=== PATIENT | male | born 1945 | race Caucasian/White ===

== ENCOUNTER 2020-01-31 06:19 | Inpatient (IN) ==
[2020-01-28 11:41] LABS: Basophils # 0.1 10*3/uL (0.0-0.2); Eosinophils # 0.2 10*3/uL (0.0-0.87); Eosinophils % 1.8 % (0.00-10.9); Hematocrit 52.3 VOL% (42.0-52.0); Immature Granulocytes % 1.8 %; Immature Granulocytes Absolute 0.21 #; Lymphocytes # 3.4 10*3/uL (1.4-4.0); Lymphocytes % 29.9 % (21.2-54.2); Mean Corpuscular HGB Conc 32.5 GM/DL (32-36); Mean Corpuscular Volume 94.9 FL (87-102); Mean Platelet Volume 11.6 FL (9.6-12.0); Monocytes % 11.2 % (1.7-12.7); Neutrophils % 54.3 % (38.7-73.9); Platelet Count 250 T/CUMM (130-400); Red Blood Count 5.51 MC/CUMM (3.8-5.5); Red Cell Distribution Width 17.1 % (9.3-17.3); White Blood Count 11.5 T/CUMM (4-12)
[2020-01-28 11:53] LABS: INR 0.9; Partial Thromboplastin Time 28.9 SECS (23.9-33.8)
[2020-01-28 12:07] LABS: Calcium 9.7 MG/DL (8.5-10.1); Osmolality,Calculated 277.7 MOS/KG (273-304)
[2020-01-31] MEDS ORDERED: cefOXitin 1,000 MG in SYRINGE 1 EACH IV ONE (06:30)
[2020-01-31] MEDS ORDERED: ACETAMINOPHEN 500 MG TABLET PO ONE (07:06)
[2020-01-31] MEDS ORDERED: FAMOTIDINE 20 MG TABLET PO ONE (07:06)
[2020-01-31] MEDS ORDERED: SCOPOLAMINE 1.5 MG PATCH TRANSDERM ONE (07:23)
[2020-01-31 07:28] LABS: Calcium 8.9 MG/DL (8.5-10.1); Osmolality,Calculated 272.8 MOS/KG (273-304)
[2020-01-31] MEDS ORDERED: LACTATED RINGERS 1,000 ML IV SCH (07:30)
[2020-01-31] MEDS ORDERED: ROPIVACAINE 0.5% 30 ML VIAL ONE (07:39)
[2020-01-31] MEDS ORDERED: LIDOCAINE 1% 5 ML VIAL ONE (07:39)
[2020-01-31] MEDS ORDERED: DEXAMETHASONE 4 MG/1 ML VIAL ONE ×2 (07:40→13:21)
[2020-01-31] MEDS: LACTATED RINGERS 1,000 ML IV SCH ×3 (07:44→20:55)
[2020-01-31] MEDS ORDERED: INDOCYANINE GREEN 25 MG VIAL IV ONE (11:22)
[2020-01-31] MEDS ORDERED: SUGAMMADEX 200 MG/2 ML VIAL IV ONE (12:30)
[2020-01-31] MEDS ORDERED: TISSUE ADHESIVE 1 EACH APPLICATOR TOP ONE (12:35)
[2020-01-31] MEDS ORDERED: HYDROmorphone 2 MG/1 ML VIAL ONE (13:13)
[2020-01-31] MEDS ORDERED: ONDANSETRON 4 MG/2 ML VIAL ONE ×2 (13:13→13:21)
[2020-01-31] MEDS ORDERED: ALUMINUM/MAGNES/SIMETH MAX STR 30 ML UDCUP PO PRN (13:18)
[2020-01-31] MEDS ORDERED: IPRATROPIUM 0.06% NASAL SPRAY 15 ML BOTTLE BOTH NARES PRN (13:18)
[2020-01-31] MEDS ORDERED: NITROGLYCERIN SL 0.4 MG TABLET SL PRN (13:18)
[2020-01-31] MEDS ORDERED: cloNIDine 0.1 MG TABLET PO PRN (13:18)
[2020-01-31] MEDS ORDERED: GLUCAGON 1 MG VIAL IM PRN (13:19)
[2020-01-31] MEDS ORDERED: DEXTROSE 50% 25 GM/50 ML VIAL IV PRN (13:19)
[2020-01-31] MEDS ORDERED: ALBUTEROL/IPRATROPIUM 3 ML NEB RESP TX PRN (13:19)
[2020-01-31] MEDS ORDERED: propofoL 200 MG/20 ML VIAL IV ONE (13:21)
[2020-01-31] MEDS ORDERED: METOCLOPRAMIDE 10 MG/2 ML VIAL ONE (13:21)
[2020-01-31] MEDS ORDERED: LIDOCAINE 2% 5 ML VIAL ONE (13:21)
[2020-01-31] MEDS ORDERED: SEVOFLURANE 1 UNIT/15 MINUTE INH ONE (13:21)
[2020-01-31] MEDS ORDERED: fentaNYL 100 MCG/2 ML VIAL ONE (13:21)
[2020-01-31] MEDS ORDERED: MIDAZOLAM 2 MG/2 ML VIAL ONE (13:21)
[2020-01-31] MEDS ORDERED: ONDANSETRON 4 MG/2 ML VIAL IV PRN (13:22)
[2020-01-31] MEDS ORDERED: LACTATED RINGERS 1,000 ML IV ONE (13:22)
[2020-01-31] MEDS ORDERED: SUCCINYLCHOLINE 200 MG/10 ML VIAL ONE (13:22)
[2020-01-31] MEDS ORDERED: ROCURONIUM 100 MG/10 ML VIAL IV ONE (13:22)
[2020-01-31] MEDS ORDERED: HYDROmorphone 2 MG/1 ML VIAL IV PRN (13:22)
[2020-01-31] MEDS: ONDANSETRON 4 MG/2 ML VIAL IV PRN (15:03)
[2020-01-31] MEDS: KETOROLAC 15 MG/1 ML VIAL IV SCH ×2 (15:03→20:49)
[2020-01-31] MEDS: DICLOFENAC 1% GEL 100 GM TUBE TOP SCH (15:06)
[2020-01-31] MEDS: INSULIN LISPRO 100 UNIT/ML SUBCUT SCH (16:10)
[2020-01-31] MEDS: carvediloL 6.25 MG TABLET PO SCH (20:49)
[2020-02-01] MEDS: OLOPATADINE 0.1% OPH SOLN 5 ML BOTTLE BOTH EYES SCH ×3 (00:06→21:25)
[2020-02-01] MEDS: DICLOFENAC 1% GEL 100 GM TUBE TOP SCH ×4 (00:08→21:25)
[2020-02-01] MEDS ORDERED: LACTATED RINGERS 1,000 ML IV ONE (00:45)
[2020-02-01] MEDS: LACTATED RINGERS 1,000 ML IV SCH (02:57)
[2020-02-01] MEDS: KETOROLAC 15 MG/1 ML VIAL IV SCH ×4 (02:58→21:24)
[2020-02-01 05:48] LABS: Basophils % 0.1 % (0.0-0.8); Hematocrit 39.1 VOL% (42.0-52.0); Immature Granulocytes % 0.6 %; Immature Granulocytes Absolute 0.09 #; Lymphocytes # 1.9 10*3/uL (1.4-4.0); Lymphocytes % 13.5 % (21.2-54.2); Mean Platelet Volume 11.8 FL (9.6-12.0); Monocytes % 7.2 % (1.7-12.7); Neutrophils % 78.6 % (38.7-73.9); Platelet Count 199 T/CUMM (130-400); Red Blood Count 4.16 MC/CUMM (3.8-5.5); Red Cell Distribution Width 16.3 % (9.3-17.3); White Blood Count 14.2 T/CUMM (4-12)
[2020-02-01 05:53] LABS: Hemoglobin 12.9 GM/DL (14.0-18.0)
[2020-02-01] MEDS: ENOXAPARIN 40 MG/0.4 ML SYRINGE SUBCUT SCH (06:15)
[2020-02-01 06:22] LABS: Osmolality,Calculated 283.5 MOS/KG (273-304)
[2020-02-01] MEDS: ONDANSETRON 4 MG/2 ML VIAL IV PRN (06:31)
[2020-02-01] MEDS: carvediloL 6.25 MG TABLET PO SCH ×2 (08:34→21:25)
[2020-02-01] MEDS: INSULIN LISPRO 100 UNIT/ML SUBCUT SCH ×3 (08:34→16:11)
[2020-02-01] MEDS: PANTOPRAZOLE 40 MG TABLET PO SCH (08:34)
[2020-02-01] MEDS: FLUTICASONE 50 MCG NASAL SPRAY 16 GM BOTTLE BOTH NARES SCH (08:56)
[2020-02-01] MEDS: DEXT 5% NACL 0.45% KCL 40 MEQ 40 MEQ/1,000 ML BAG IV SCH ×2 (11:51→19:16)
[2020-02-02] MEDS: ONDANSETRON 4 MG/2 ML VIAL IV PRN ×2 (01:45→08:36)
[2020-02-02] MEDS: HYDROmorphone 2 MG/1 ML VIAL IV PRN ×2 (01:48→19:34)
[2020-02-02] MEDS: DEXT 5% NACL 0.45% KCL 40 MEQ 40 MEQ/1,000 ML BAG IV SCH ×2 (03:16→15:51)
[2020-02-02] MEDS: KETOROLAC 15 MG/1 ML VIAL IV SCH ×4 (03:24→21:09)
[2020-02-02] MEDS: PROMETHAZINE 25 MG/1 ML VIAL IM PRN (03:56)
[2020-02-02 07:09] LABS: Basophils % 0.2 % (0.0-0.8); Hematocrit 36.9 VOL% (42.0-52.0); Hemoglobin 12.3 GM/DL (14.0-18.0); Immature Granulocytes % 0.5 %; Immature Granulocytes Absolute 0.05 #; Lymphocytes # 0.8 10*3/uL (1.4-4.0); Lymphocytes % 7.3 % (21.2-54.2); Mean Corpuscular HGB Conc 33.3 GM/DL (32-36); Mean Corpuscular Volume 94.6 FL (87-102); Mean Platelet Volume 11.8 FL (9.6-12.0); Platelet Count 168 T/CUMM (130-400); Red Cell Distribution Width 16.8 % (9.3-17.3); White Blood Count 10.2 T/CUMM (4-12)
[2020-02-02 07:20] LABS: Osmolality,Calculated 277.8 MOS/KG (273-304)
[2020-02-02] MEDS: LACTATED RINGERS 1,000 ML IV SCH ×2 (08:26→22:09)
[2020-02-02] MEDS: ENOXAPARIN 40 MG/0.4 ML SYRINGE SUBCUT SCH (09:33)
[2020-02-02] MEDS: INSULIN LISPRO 100 UNIT/ML SUBCUT SCH ×4 (09:33→21:07)
[2020-02-02] MEDS: carvediloL 6.25 MG TABLET PO SCH (10:22)
[2020-02-02] MEDS: FLUTICASONE 50 MCG NASAL SPRAY 16 GM BOTTLE BOTH NARES SCH (10:22)
[2020-02-02] MEDS: DICLOFENAC 1% GEL 100 GM TUBE TOP SCH ×2 (10:23→15:01)
[2020-02-02] MEDS: PANTOPRAZOLE 40 MG TABLET PO SCH (10:23)
[2020-02-02] MEDS: OLOPATADINE 0.1% OPH SOLN 5 ML BOTTLE BOTH EYES SCH (10:23)
[2020-02-02] MEDS ORDERED: LACTATED RINGERS 1,000 ML IV ONE ×4 (12:11→20:51)
[2020-02-02] MEDS ORDERED: MAGNESIUM SULF RIDER 4 GM in PREMIX 1 EACH IV PRN (12:11)
[2020-02-02] MEDS ORDERED: SODIUM CHLORIDE 0.9% 1,000 ML IV ONE ×2 (12:36→14:13)
[2020-02-02] MEDS ORDERED: DEXTROSE 50% 25 GM/50 ML VIAL IV PRN (12:36)
[2020-02-02] MEDS ORDERED: GLUCAGON 1 MG VIAL IM PRN (12:36)
[2020-02-02] MEDS ORDERED: NOREPINEPHRINE 8 MG in SODIUM CHLORIDE 0.9% 242 ML IV PRN ×2 (13:09→17:13)
[2020-02-02] MEDS ORDERED: NOREPINEPHRINE 4 MG/4 ML VIAL IV ONE (13:12)
[2020-02-02] MEDS ORDERED: SODIUM CHLORIDE 0.9% 1,000 ML IV SCH (13:30)
[2020-02-02] MEDS: MEROPENEM 500 MG in SODIUM CHLORIDE 0.9% 100 ML IV SCH ×2 (14:54→20:27)
[2020-02-02 14:58] LABS: Bilirubin,Urine Negative (Negative); Blood, Urine Moderate mg/dL (Negative); Glucose,Urine (UA) 50 mg/dL (Negative); Hyaline Casts,Urine 4 /LPF (0-3); Ketones,Urine Negative (Negative); Mucus,Urine Occasional /LPF (Occasional); Nitrite,Urine Negative (Negative); Protein,Urine Negative; RBC,Urine 1 /HPF (0-4); Urine Appearance CLEAR (Clear); Urine Color Yellow (Yellow); Urine Specific Gravity 1.012 (1.001-1.035); Urine Urobilinogen < 2.0 EU/DL (0.2-1.0); WBC,Urine <1 /HPF (0-6)
[2020-02-02] MEDS ORDERED: PHENYLEPHRINE DRIP 40 MG/250 ML PREMIX IV ONE (16:43)
[2020-02-02] MEDS ORDERED: MAGNESIUM SULF RIDER 2 GM in PREMIX 1 EACH IV ONE (16:44)
[2020-02-02] MEDS: MAGNESIUM SULF RIDER 2 GM in PREMIX 1 EACH IV PRN (16:45)
[2020-02-02 16:46] LABS: Hematocrit 34.4 VOL% (42.0-52.0); Hemoglobin 11.7 GM/DL (14.0-18.0); Platelet Count 218 T/CUMM (130-400)
[2020-02-02] MEDS: PHENYLEPHRINE DRIP 40 MG/250 ML PREMIX IV PRN (16:52)
[2020-02-02] MEDS: PANTOPRAZOLE 40 MG VIAL IV SCH (17:10)
[2020-02-02 17:24] LABS: INR 1.1; PT Patient Result 11.9 SECS (9.8-11.9); Partial Thromboplastin Time 31.8 SECS (23.9-33.8)
[2020-02-02] MEDS ORDERED: LIDOCAINE 1%/EPI INJ 20 ML VIAL ONE (17:28)
[2020-02-02] MEDS ORDERED: BUPIVACAINE MPF 0.25% 30 ML VIAL ONE (17:28)
[2020-02-02] MEDS ORDERED: PHENYLEPHRINE DRIP 20 MG/250 ML PREMIX IV ONE (17:30)
[2020-02-02] MEDS ORDERED: LIDOCAINE 2% 5 ML VIAL ONE (19:23)
[2020-02-02] MEDS ORDERED: fentaNYL 100 MCG/2 ML VIAL ONE (19:23)
[2020-02-02] MEDS ORDERED: SEVOFLURANE 1 UNIT/15 MINUTE INH ONE (19:23)
[2020-02-02] MEDS ORDERED: SUCCINYLCHOLINE 200 MG/10 ML VIAL ONE (19:24)
[2020-02-02] MEDS ORDERED: ROCURONIUM 100 MG/10 ML VIAL IV ONE (19:24)
[2020-02-02] MEDS ORDERED: PHENYLEPHRINE 1 MG/10 ML SYRINGE IV ONE (19:24)
[2020-02-02] MEDS ORDERED: MIDAZOLAM 2 MG/2 ML VIAL ONE (19:24)
[2020-02-02] MEDS ORDERED: VECURONIUM 10 MG VIAL IV ONE (19:24)
[2020-02-02] MEDS ORDERED: SODIUM CHLORIDE 0.9% 2,000 ML IV ONE (19:24)
[2020-02-02] MEDS ORDERED: ETOMIDATE 40 MG/20 ML VIAL IV ONE (19:24)
[2020-02-02 20:09] LABS: ABG Base Excess -8.7 MMOL/L (-2.5-2.5); ABG HCO3 17.5 MMOL/L (20-26); ABG Oxygen Saturation 95.9 % (95-100); ABG PH 7.271 (7.35-7.45); ABG TCO2 18.7 MMOL/L (23-27)
[2020-02-03] MEDS: LACTATED RINGERS 1,000 ML IV SCH ×7 (00:46→22:56)
[2020-02-03] MEDS: MEROPENEM 500 MG in SODIUM CHLORIDE 0.9% 100 ML IV SCH ×3 (00:50→12:40)
[2020-02-03] MEDS: DICLOFENAC 1% GEL 100 GM TUBE TOP SCH ×3 (01:12→17:17)
[2020-02-03] MEDS: PHENYLEPHRINE DRIP 40 MG/250 ML PREMIX IV PRN ×2 (01:39→07:14)
[2020-02-03] MEDS: KETOROLAC 15 MG/1 ML VIAL IV SCH ×2 (02:52→08:06)
[2020-02-03 03:54] LABS: ABG Base Excess -8.6 MMOL/L (-2.5-2.5); ABG HCO3 17.5 MMOL/L (20-26); ABG Oxygen Saturation 99.4 % (95-100); ABG PCO2 28.7 MM HG (35-48); ABG PH 7.349 (7.35-7.45); ABG TCO2 14.2 MMOL/L (23-27)
[2020-02-03 03:58] LABS: Basophils # 0.1 10*3/uL (0.0-0.2); Basophils % 0.5 % (0.0-0.8); Eosinophils # 0.1 10*3/uL (0.0-0.87); Eosinophils % 0.6 % (0.00-10.9); Hematocrit 36.5 VOL% (42.0-52.0); Hemoglobin 11.7 GM/DL (14.0-18.0); Immature Granulocytes % 0.3 %; Immature Granulocytes Absolute 0.04 #; Lymphocytes % 13.1 % (21.2-54.2); Mean Corpuscular HGB Conc 32.1 GM/DL (32-36); Mean Corpuscular Volume 98.1 FL (87-102); Mean Platelet Volume 11.4 FL (9.6-12.0); Monocytes % 10.2 % (1.7-12.7); NRBC # 0.03 10*3/uL; Neutrophils % 75.3 % (38.7-73.9); Platelet Count 241 T/CUMM (130-400); Red Blood Count 3.72 MC/CUMM (3.8-5.5); Red Cell Distribution Width 17.2 % (9.3-17.3); White Blood Count 15.5 T/CUMM (4-12)
[2020-02-03 04:11] LABS: Bilirubin,Total 0.6 MG/DL (0.2-1.0); Osmolality,Calculated 280.5 MOS/KG (273-304); Total Protein 4.9 G/DL (6.4-8.3)
[2020-02-03 04:58] LABS: Band Neutrophils 10 % (0-10); Lymphocytes 17 % (20-55); Metamyelocytes 2 %; Segmented Neutrophils 64 % (50-85); Total Cells Counted 100
[2020-02-03 05:13] LABS: Hypochromasia Slight
[2020-02-03 05:14] LABS: Microcytosis 1+; Platelet Estimate Normal
[2020-02-03] MEDS: OLOPATADINE 0.1% OPH SOLN 5 ML BOTTLE BOTH EYES SCH ×2 (05:40→11:33)
[2020-02-03] MEDS: ENOXAPARIN 40 MG/0.4 ML SYRINGE SUBCUT SCH (05:41)
[2020-02-03] MEDS: INSULIN LISPRO 100 UNIT/ML SUBCUT SCH ×4 (08:00→20:48)
[2020-02-03] MEDS: PANTOPRAZOLE 40 MG VIAL IV SCH (08:02)
[2020-02-03] MEDS: MIDAZOLAM 100 MG in SODIUM CHLORIDE 0.9% 80 ML IV PRN (11:00)
[2020-02-03] MEDS: FLUTICASONE 50 MCG NASAL SPRAY 16 GM BOTTLE BOTH NARES SCH (11:33)
[2020-02-03] MEDS: PHENYLEPHRINE INJ 160 MG in SODIUM CHLORIDE 0.9% 234 ML IV PRN (11:57)
[2020-02-03] MEDS: ASPIRIN CHEW 81 MG TABLET PO SCH (12:27)
[2020-02-03] MEDS ORDERED: ENOXAPARIN 100 MG/ML SYRINGE SUBCUT SCH (13:00)
[2020-02-03] MEDS: MAGNESIUM SULF RIDER 2 GM in PREMIX 1 EACH IV PRN ×2 (13:18→15:34)
[2020-02-03] MEDS: HYDROmorphone 2 MG/1 ML VIAL IV PRN ×2 (14:23→20:43)
[2020-02-03] MEDS ORDERED: diphenhydrAMINE 50 MG/1 ML VIAL IV PRN (17:08)
[2020-02-03] MEDS ORDERED: PANTOPRAZOLE 40 MG VIAL IV SCH (17:10)
[2020-02-03] MEDS: ENOXAPARIN 100 MG/ML SYRINGE SUBCUT SCH (18:10)
[2020-02-04] MEDS: MEROPENEM 500 MG in SODIUM CHLORIDE 0.9% 100 ML IV SCH (00:52)
[2020-02-04 04:38] LABS: ABG Base Excess -3.7 MMOL/L (-2.5-2.5); ABG HCO3 21.4 MMOL/L (20-26); ABG Oxygen Saturation 98.9 % (95-100); ABG PCO2 33.6 MM HG (35-48); ABG PH 7.393 (7.35-7.45); ABG TCO2 18.2 MMOL/L (23-27)
[2020-02-04] MEDS: LACTATED RINGERS 1,000 ML IV SCH ×5 (04:39→19:37)
[2020-02-04] MEDS: PHENYLEPHRINE INJ 160 MG in SODIUM CHLORIDE 0.9% 234 ML IV PRN (04:40)
[2020-02-04 04:46] LABS: Basophils # 0.1 10*3/uL (0.0-0.2); Basophils % 0.7 % (0.0-0.8); Eosinophils # 0.1 10*3/uL (0.0-0.87); Eosinophils % 0.6 % (0.00-10.9); Hematocrit 35.6 VOL% (42.0-52.0); Hemoglobin 11.5 GM/DL (14.0-18.0); Immature Granulocytes % 1.1 %; Immature Granulocytes Absolute 0.21 #; Lymphocytes # 1.5 10*3/uL (1.4-4.0); Mean Corpuscular HGB Conc 32.3 GM/DL (32-36); Mean Corpuscular Volume 96.5 FL (87-102); Mean Platelet Volume 11.4 FL (9.6-12.0); Monocytes % 6.9 % (1.7-12.7); NRBC # 0.03 10*3/uL; Neutrophils % 82.7 % (38.7-73.9); Platelet Count 179 T/CUMM (130-400); Red Blood Count 3.69 MC/CUMM (3.8-5.5); Red Cell Distribution Width 17.2 % (9.3-17.3); White Blood Count 19.1 T/CUMM (4-12)
[2020-02-04] MEDS: MIDAZOLAM 100 MG in SODIUM CHLORIDE 0.9% 80 ML IV PRN (05:01)
[2020-02-04 05:07] LABS: Band Neutrophils 6 % (0-10); Hypochromasia Slight; Lymphocytes 7 % (20-55); Metamyelocytes 1 %; Segmented Neutrophils 80 % (50-85); Total Cells Counted 100
[2020-02-04 05:08] LABS: Microcytosis 1+; Platelet Estimate Adequate
[2020-02-04 05:21] LABS: Calcium 6.9 MG/DL (8.5-10.1); Osmolality,Calculated 281.3 MOS/KG (273-304)
[2020-02-04 05:26] LABS: Albumin 1.6 G/DL (3.4-5.0); Bilirubin,Total 0.6 MG/DL (0.2-1.0); Calcium 7.2 MG/DL (8.5-10.1); Osmolality,Calculated 283.1 MOS/KG (273-304); Total Protein 4.6 G/DL (6.4-8.3)
[2020-02-04] MEDS: DICLOFENAC 1% GEL 100 GM TUBE TOP SCH ×4 (05:26→21:00)
[2020-02-04] MEDS: ACETAMINOPHEN 325 MG TABLET PO PRN (08:07)
[2020-02-04] MEDS: ASPIRIN CHEW 81 MG TABLET PO SCH (08:08)
[2020-02-04] MEDS: INSULIN LISPRO 100 UNIT/ML SUBCUT SCH ×4 (08:08→20:56)
[2020-02-04] MEDS: PANTOPRAZOLE 40 MG VIAL IV SCH (08:16)
[2020-02-04] MEDS: FLUTICASONE 50 MCG NASAL SPRAY 16 GM BOTTLE BOTH NARES SCH (10:59)
[2020-02-04] MEDS: LEVOFLOXACIN INJ 750 MG in PREMIX 1 EACH IV SCH (11:20)
[2020-02-04] MEDS: ENOXAPARIN 100 MG/ML SYRINGE SUBCUT SCH (18:22)
[2020-02-05] MEDS: INSULIN LISPRO 100 UNIT/ML SUBCUT SCH ×4 (01:05→19:00)
[2020-02-05] MEDS: LACTATED RINGERS 1,000 ML IV SCH ×3 (01:06→07:08)
[2020-02-05] MEDS: ONDANSETRON 4 MG/2 ML VIAL IV PRN ×4 (03:42→18:16)
[2020-02-05] MEDS: ACETAMINOPHEN 325 MG TABLET PO PRN (03:42)
[2020-02-05 04:16] LABS: ABG Base Excess -2.7 MMOL/L (-2.5-2.5); ABG HCO3 22.1 MMOL/L (20-26); ABG Oxygen Saturation 96.7 % (95-100); ABG PCO2 32.7 MM HG (35-48); ABG PH 7.417 (7.35-7.45); ABG TCO2 18.8 MMOL/L (23-27)
[2020-02-05 04:24] LABS: Basophils # 0.1 10*3/uL (0.0-0.2); Basophils % 0.4 % (0.0-0.8); Eosinophils # 0.2 10*3/uL (0.0-0.87); Eosinophils % 1.2 % (0.00-10.9); Hematocrit 35.7 VOL% (42.0-52.0); Hemoglobin 11.5 GM/DL (14.0-18.0); Immature Granulocytes % 1.7 %; Immature Granulocytes Absolute 0.28 #; Lymphocytes # 1.5 10*3/uL (1.4-4.0); Mean Corpuscular HGB Conc 32.2 GM/DL (32-36); Mean Corpuscular Volume 94.7 FL (87-102); Mean Platelet Volume 10.8 FL (9.6-12.0); Monocytes % 8.4 % (1.7-12.7); Neutrophils % 79.3 % (38.7-73.9); Platelet Count 150 T/CUMM (130-400); Red Blood Count 3.77 MC/CUMM (3.8-5.5); Red Cell Distribution Width 16.7 % (9.3-17.3); White Blood Count 16.2 T/CUMM (4-12)
[2020-02-05 04:44] LABS: Calcium 7.3 MG/DL (8.5-10.1); Osmolality,Calculated 279.4 MOS/KG (273-304)
[2020-02-05 04:51] LABS: Band Neutrophils 1 % (0-10); Eosinophils 1 % (0-10); Lymphocytes 6 % (20-55); Segmented Neutrophils 85 % (50-85); Total Cells Counted 100
[2020-02-05 04:52] LABS: Hypochromasia 1+; Microcytosis 1+; Platelet Estimate Adequate
[2020-02-05] MEDS: MAGNESIUM SULF RIDER 2 GM in PREMIX 1 EACH IV PRN (06:35)
[2020-02-05] MEDS: LEVOFLOXACIN INJ 750 MG in PREMIX 1 EACH IV SCH (10:27)
[2020-02-05] MEDS: ASPIRIN CHEW 81 MG TABLET PO SCH (10:28)
[2020-02-05] MEDS: DICLOFENAC 1% GEL 100 GM TUBE TOP SCH ×3 (10:29→21:01)
[2020-02-05] MEDS: ENOXAPARIN 100 MG/ML SYRINGE SUBCUT SCH ×2 (10:29→21:01)
[2020-02-05] MEDS: FLUTICASONE 50 MCG NASAL SPRAY 16 GM BOTTLE BOTH NARES SCH (10:30)
[2020-02-05] MEDS: PANTOPRAZOLE 40 MG VIAL IV SCH (10:31)
[2020-02-05] MEDS: POTASSIUM CHLORIDE RIDER 10 MEQ in PREMIX 1 EACH IV PRN ×3 (10:32→12:30)
[2020-02-05] MEDS ORDERED: HALOPERIDOL 5 MG/ML AMP IV PRN (11:12)
[2020-02-05] MEDS: PROMETHAZINE 25 MG/1 ML VIAL IM PRN (22:22)
[2020-02-06] MEDS: INSULIN LISPRO 100 UNIT/ML SUBCUT SCH ×5 (00:10→23:40)
[2020-02-06 04:52] LABS: Basophils % 0.3 % (0.0-0.8); Eosinophils # 0.3 10*3/uL (0.0-0.87); Eosinophils % 2.6 % (0.00-10.9); Hematocrit 38.9 VOL% (42.0-52.0); Hemoglobin 13.1 GM/DL (14.0-18.0); Immature Granulocytes % 6.9 %; Immature Granulocytes Absolute 0.76 #; Lymphocytes % 17.8 % (21.2-54.2); Mean Corpuscular HGB Conc 33.7 GM/DL (32-36); Mean Corpuscular Volume 92.4 FL (87-102); Mean Platelet Volume 12.1 FL (9.6-12.0); Monocytes % 11.6 % (1.7-12.7); Neutrophils % 60.8 % (38.7-73.9); Platelet Count 146 T/CUMM (130-400); Red Blood Count 4.21 MC/CUMM (3.8-5.5); Red Cell Distribution Width 16.7 % (9.3-17.3)
[2020-02-06 05:09] LABS: Calcium 7.4 MG/DL (8.5-10.1); Osmolality,Calculated 277.4 MOS/KG (273-304)
[2020-02-06 05:13] LABS: Band Neutrophils 1 % (0-10); Eosinophils 1 % (0-10); Hypochromasia 1+; Lymphocytes 11 % (20-55); Segmented Neutrophils 78 % (50-85); Total Cells Counted 100
[2020-02-06 05:14] LABS: Microcytosis 1+; Platelet Estimate Adequate
[2020-02-06] MEDS: POTASSIUM CHLORIDE RIDER 10 MEQ in PREMIX 1 EACH IV PRN (05:44)
[2020-02-06] MEDS: MAGNESIUM SULF RIDER 2 GM in PREMIX 1 EACH IV PRN (06:00)
[2020-02-06] MEDS: ONDANSETRON 4 MG/2 ML VIAL IV PRN ×2 (06:33→22:30)
[2020-02-06] MEDS: DICLOFENAC 1% GEL 100 GM TUBE TOP SCH ×3 (08:39→20:27)
[2020-02-06] MEDS: ASPIRIN CHEW 81 MG TABLET PO SCH (08:39)
[2020-02-06] MEDS: PANTOPRAZOLE 40 MG VIAL IV SCH (08:39)
[2020-02-06] MEDS: ENOXAPARIN 100 MG/ML SYRINGE SUBCUT SCH ×2 (08:39→20:27)
[2020-02-06] MEDS: FLUTICASONE 50 MCG NASAL SPRAY 16 GM BOTTLE BOTH NARES SCH (08:39)
[2020-02-06] MEDS: LEVOFLOXACIN INJ 750 MG in PREMIX 1 EACH IV SCH (09:31)
[2020-02-06] MEDS: PROMETHAZINE 25 MG/1 ML VIAL IM PRN (11:13)
[2020-02-06] MEDS: FAT EMULSION 20% 250 ML IV SCH (15:42)
[2020-02-06] MEDS ORDERED: [UNRECOGNIZED DRUG - OTHER] IV SCH (17:00)
[2020-02-06] MEDS ORDERED: MULTIVITAMIN IV SCH (17:00)
[2020-02-06] MEDS ORDERED: TRACE ELEMENTS IV SCH (17:00)
[2020-02-06] MEDS ORDERED: DEXTROSE 10% 1,000 ML IV PRN (17:00)
[2020-02-06] MEDS: HYDROmorphone 2 MG/1 ML VIAL IV PRN (23:40)
[2020-02-07 05:14] LABS: Basophils # 0.1 10*3/uL (0.0-0.2); Basophils % 1.3 % (0.0-0.8); Eosinophils # 0.4 10*3/uL (0.0-0.87); Eosinophils % 3.4 % (0.00-10.9); Hematocrit 37.7 VOL% (42.0-52.0); Hemoglobin 12.8 GM/DL (14.0-18.0); Immature Granulocytes % 11.9 %; Immature Granulocytes Absolute 1.26 #; Lymphocytes % 19.2 % (21.2-54.2); Mean Corpuscular Volume 91.5 FL (87-102); Mean Platelet Volume 11.7 FL (9.6-12.0); Monocytes % 14.4 % (1.7-12.7); Neutrophils % 49.8 % (38.7-73.9); Platelet Count 161 T/CUMM (130-400); Red Blood Count 4.12 MC/CUMM (3.8-5.5); Red Cell Distribution Width 16.6 % (9.3-17.3); White Blood Count 10.6 T/CUMM (4-12)
[2020-02-07 05:34] LABS: Calcium 7.5 MG/DL (8.5-10.1); Osmolality,Calculated 276.8 MOS/KG (273-304)
[2020-02-07] MEDS: INSULIN LISPRO 100 UNIT/ML SUBCUT SCH ×3 (05:50→18:38)
[2020-02-07 05:51] LABS: Eosinophils 6 % (0-10); Hypochromasia 1+; Lymphocytes 21 % (20-55); Metamyelocytes 1 %; Myelocytes 3 %; Segmented Neutrophils 57 % (50-85)
[2020-02-07 05:52] LABS: Platelet Estimate Normal; Total Cells Counted 100
[2020-02-07] MEDS: MAGNESIUM SULF RIDER 2 GM in PREMIX 1 EACH IV PRN (05:55)
[2020-02-07] MEDS: POTASSIUM CHLORIDE RIDER 10 MEQ in PREMIX 1 EACH IV PRN (05:55)
[2020-02-07] MEDS: ONDANSETRON 4 MG/2 ML VIAL IV PRN ×5 (06:08→20:55)
[2020-02-07] MEDS: PANTOPRAZOLE 40 MG VIAL IV SCH (09:14)
[2020-02-07] MEDS: ENOXAPARIN 100 MG/ML SYRINGE SUBCUT SCH ×2 (09:17→20:56)
[2020-02-07] MEDS: DICLOFENAC 1% GEL 100 GM TUBE TOP SCH ×3 (09:20→20:59)
[2020-02-07] MEDS: ASPIRIN CHEW 81 MG TABLET PO SCH (09:23)
[2020-02-07] MEDS: LEVOFLOXACIN INJ 750 MG in PREMIX 1 EACH IV SCH (09:35)
[2020-02-07] MEDS ORDERED: POTASSIUM CHLORIDE 20 MEQ/15 ML UDCUP PER TUBE SCH (10:00)
[2020-02-07] MEDS: FLUTICASONE 50 MCG NASAL SPRAY 16 GM BOTTLE BOTH NARES SCH (11:04)
[2020-02-07] MEDS: POTASSIUM CHLORIDE 20 MEQ TABLET PO SCH ×3 (11:34→18:39)
[2020-02-07] MEDS: PROMETHAZINE 25 MG/1 ML VIAL IM PRN (15:39)
[2020-02-07] MEDS: MULTIVITAMIN INJ 10 ML, TRACE ELEMENTS (5) 1 ML in AMINO ACIDS/DEXT/LYTES 5-15% 2,000 ML IV SCH (16:16)
[2020-02-07] MEDS: FAT EMULSION 20% 250 ML IV SCH (16:16)
[2020-02-07] MEDS: HYDROmorphone 2 MG/1 ML VIAL IV PRN ×2 (17:15→20:53)
[2020-02-07] MEDS: PROMETHAZINE INJ 12.5 MG in SODIUM CHLORIDE 0.9% 50 ML IV PRN (22:15)
[2020-02-07] MEDS: OLOPATADINE 0.1% OPH SOLN 5 ML BOTTLE BOTH EYES SCH (22:57)
[2020-02-08] MEDS: ONDANSETRON 4 MG/2 ML VIAL IV PRN ×5 (00:04→21:05)
[2020-02-08] MEDS: HYDROmorphone 2 MG/1 ML VIAL IV PRN ×3 (00:50→21:12)
[2020-02-08] MEDS: INSULIN LISPRO 100 UNIT/ML SUBCUT SCH ×4 (01:57→18:12)
[2020-02-08 04:31] LABS: Basophils # 0.1 10*3/uL (0.0-0.2); Basophils % 0.7 % (0.0-0.8); Eosinophils # 0.2 10*3/uL (0.0-0.87); Eosinophils % 1.1 % (0.00-10.9); Hemoglobin 12.7 GM/DL (14.0-18.0); Immature Granulocytes Absolute 2.37 #; Lymphocytes % 14.3 % (21.2-54.2); Mean Corpuscular HGB Conc 33.4 GM/DL (32-36); Mean Corpuscular Volume 92.2 FL (87-102); Mean Platelet Volume 11.9 FL (9.6-12.0); Monocytes % 15.1 % (1.7-12.7); NRBC # 0.03 10*3/uL; Neutrophils % 51.8 % (38.7-73.9); Platelet Count 172 T/CUMM (130-400); Red Blood Count 4.12 MC/CUMM (3.8-5.5); Red Cell Distribution Width 16.7 % (9.3-17.3)
[2020-02-08 04:48] LABS: Calcium 7.7 MG/DL (8.5-10.1); Osmolality,Calculated 278.1 MOS/KG (273-304)
[2020-02-08 05:02] LABS: Lymphocytes 22 % (20-55); Nucleated Red Blood Cells 1 (0-5); Platelet Estimate Normal; Segmented Neutrophils 66 % (50-85)
[2020-02-08 05:03] LABS: Total Cells Counted 100
[2020-02-08] MEDS: PROMETHAZINE INJ 12.5 MG in SODIUM CHLORIDE 0.9% 50 ML IV PRN ×2 (06:27→14:10)
[2020-02-08] MEDS: ASPIRIN CHEW 81 MG TABLET PO SCH (08:33)
[2020-02-08] MEDS: OLOPATADINE 0.1% OPH SOLN 5 ML BOTTLE BOTH EYES SCH ×2 (08:34→21:11)
[2020-02-08] MEDS: DICLOFENAC 1% GEL 100 GM TUBE TOP SCH ×3 (08:34→21:04)
[2020-02-08] MEDS: FLUTICASONE 50 MCG NASAL SPRAY 16 GM BOTTLE BOTH NARES SCH (08:34)
[2020-02-08] MEDS: ENOXAPARIN 100 MG/ML SYRINGE SUBCUT SCH ×2 (08:34→21:04)
[2020-02-08] MEDS: PANTOPRAZOLE 40 MG VIAL IV SCH (08:34)
[2020-02-08] MEDS: LEVOFLOXACIN INJ 750 MG in PREMIX 1 EACH IV SCH (11:16)
[2020-02-08] MEDS: FAT EMULSION 20% 250 ML IV SCH (15:28)
[2020-02-08] MEDS: INSULIN REGULAR IV SCH ×2 (15:29→16:16)
[2020-02-08] MEDS: MULTIVITAMIN IV SCH ×2 (15:29→16:16)
[2020-02-08] MEDS: TRACE ELEMENTS IV SCH ×2 (15:29→16:16)
[2020-02-08] MEDS: [UNRECOGNIZED DRUG - OTHER] IV SCH ×2 (15:29→16:16)
[2020-02-08] MEDS: MULTIVITAMIN INJ 10 ML, TRACE ELEMENTS (5) 1 ML in AMINO ACIDS/DEXT/LYTES 5-15% 2,000 ML IV SCH (15:30)
[2020-02-08] MEDS: LACTATED RINGERS 1,000 ML IV SCH (17:23)
[2020-02-08] MEDS ORDERED: PHENOL 1.4% THROAT SPRAY 177 ML BOTTLE PO PRN (20:00)
[2020-02-08] MEDS ORDERED: valACYclovir 500 MG TABLET PO SCH (21:00)
[2020-02-08] MEDS: valACYclovir 500 MG TABLET PO SCH (21:05)
[2020-02-09] MEDS: HYDROmorphone 2 MG/1 ML VIAL IV PRN ×4 (00:21→21:51)
[2020-02-09] MEDS: INSULIN LISPRO 100 UNIT/ML SUBCUT SCH ×4 (00:23→18:13)
[2020-02-09] MEDS: LACTATED RINGERS 1,000 ML IV SCH (06:20)
[2020-02-09 06:33] LABS: Basophils # 0.1 10*3/uL (0.0-0.2); Basophils % 0.5 % (0.0-0.8); Eosinophils # 0.3 10*3/uL (0.0-0.87); Eosinophils % 1.9 % (0.00-10.9); Hematocrit 39.2 VOL% (42.0-52.0); Hemoglobin 12.7 GM/DL (14.0-18.0); Immature Granulocytes % 17.8 %; Immature Granulocytes Absolute 3.02 #; Lymphocytes # 2.7 10*3/uL (1.4-4.0); Lymphocytes % 15.6 % (21.2-54.2); Mean Corpuscular HGB Conc 32.4 GM/DL (32-36); Mean Corpuscular Volume 93.8 FL (87-102); Mean Platelet Volume 12.6 FL (9.6-12.0); Monocytes % 11.7 % (1.7-12.7); NRBC # 0.05 10*3/uL; Neutrophils % 52.5 % (38.7-73.9); Platelet Count 185 T/CUMM (130-400); Red Blood Count 4.18 MC/CUMM (3.8-5.5); Red Cell Distribution Width 16.9 % (9.3-17.3)
[2020-02-09 07:21] LABS: Calcium 8.1 MG/DL (8.5-10.1); Osmolality,Calculated 272.1 MOS/KG (273-304)
[2020-02-09 07:34] LABS: Band Neutrophils 6 % (0-10); Lymphocytes 12 % (20-55); Metamyelocytes 5 %; Myelocytes 1 %; Nucleated Red Blood Cells 1 (0-5); Segmented Neutrophils 63 % (50-85); Total Cells Counted 100
[2020-02-09 07:35] LABS: Hypochromasia 1+; Microcytosis 1+
[2020-02-09 07:36] LABS: Platelet Estimate Adequate; Polychromasia Slight
[2020-02-09] MEDS: ENOXAPARIN 100 MG/ML SYRINGE SUBCUT SCH ×2 (08:25→20:53)
[2020-02-09] MEDS: ONDANSETRON 4 MG/2 ML VIAL IV PRN (08:26)
[2020-02-09] MEDS: valACYclovir 500 MG TABLET PO SCH (08:26)
[2020-02-09] MEDS: ASPIRIN CHEW 81 MG TABLET PO SCH (08:26)
[2020-02-09] MEDS: PANTOPRAZOLE 40 MG VIAL IV SCH (08:27)
[2020-02-09] MEDS: FLUTICASONE 50 MCG NASAL SPRAY 16 GM BOTTLE BOTH NARES SCH (08:36)
[2020-02-09] MEDS: OLOPATADINE 0.1% OPH SOLN 5 ML BOTTLE BOTH EYES SCH ×2 (08:37→20:56)
[2020-02-09] MEDS: DICLOFENAC 1% GEL 100 GM TUBE TOP SCH ×3 (08:37→20:56)
[2020-02-09] MEDS ORDERED: POTASSIUM CHLORIDE 20 MEQ TABLET PO ONE (08:58)
[2020-02-09] MEDS: LEVOFLOXACIN INJ 750 MG in PREMIX 1 EACH IV SCH (11:02)
[2020-02-09] MEDS: [UNRECOGNIZED DRUG - OTHER] IV SCH (13:46)
[2020-02-09] MEDS: INSULIN REGULAR IV SCH (13:46)
[2020-02-09] MEDS: TRACE ELEMENTS IV SCH (13:46)
[2020-02-09] MEDS: MULTIVITAMIN IV SCH (13:46)
[2020-02-09] MEDS: FAT EMULSION 20% 250 ML IV SCH (15:40)
[2020-02-10] MEDS: INSULIN LISPRO 100 UNIT/ML SUBCUT SCH ×4 (00:41→18:25)
[2020-02-10] MEDS: ONDANSETRON 4 MG/2 ML VIAL IV PRN ×2 (00:42→20:33)
[2020-02-10 05:46] LABS: Basophils # 0.1 10*3/uL (0.0-0.2); Basophils % 0.6 % (0.0-0.8); Eosinophils # 0.3 10*3/uL (0.0-0.87); Eosinophils % 2.2 % (0.00-10.9); Hematocrit 34.5 VOL% (42.0-52.0); Hemoglobin 11.3 GM/DL (14.0-18.0); Immature Granulocytes % 17.8 %; Immature Granulocytes Absolute 2.36 #; Lymphocytes # 1.9 10*3/uL (1.4-4.0); Mean Corpuscular HGB Conc 32.8 GM/DL (32-36); Mean Corpuscular Volume 92.5 FL (87-102); Mean Platelet Volume 12.6 FL (9.6-12.0); Monocytes % 11.5 % (1.7-12.7); NRBC # 0.06 10*3/uL; Neutrophils % 53.9 % (38.7-73.9); Platelet Count 205 T/CUMM (130-400); Red Blood Count 3.73 MC/CUMM (3.8-5.5); Red Cell Distribution Width 16.9 % (9.3-17.3); White Blood Count 13.3 T/CUMM (4-12)
[2020-02-10 06:05] LABS: Calcium 7.8 MG/DL (8.5-10.1); Osmolality,Calculated 276.1 MOS/KG (273-304)
[2020-02-10 06:18] LABS: Band Neutrophils 3 % (0-10); Eosinophils 1 % (0-10); Lymphocytes 14 % (20-55); Nucleated Red Blood Cells 2 (0-5); Platelet Estimate Adequate; Segmented Neutrophils 78 % (50-85); Total Cells Counted 100
[2020-02-10 06:19] LABS: Hypochromasia 1+; Microcytosis Slight
[2020-02-10] MEDS: PROMETHAZINE INJ 12.5 MG in SODIUM CHLORIDE 0.9% 50 ML IV PRN ×2 (06:20→16:39)
[2020-02-10] MEDS: HYDROmorphone 2 MG/1 ML VIAL IV PRN (06:20)
[2020-02-10] MEDS: FLUTICASONE 50 MCG NASAL SPRAY 16 GM BOTTLE BOTH NARES SCH (09:11)
[2020-02-10] MEDS: ASPIRIN CHEW 81 MG TABLET PO SCH (09:11)
[2020-02-10] MEDS: PANTOPRAZOLE 40 MG VIAL IV SCH (09:11)
[2020-02-10] MEDS: OLOPATADINE 0.1% OPH SOLN 5 ML BOTTLE BOTH EYES SCH ×2 (09:12→20:37)
[2020-02-10] MEDS: DICLOFENAC 1% GEL 100 GM TUBE TOP SCH ×3 (09:13→20:26)
[2020-02-10] MEDS: ENOXAPARIN 100 MG/ML SYRINGE SUBCUT SCH ×2 (09:36→20:27)
[2020-02-10] MEDS: LEVOFLOXACIN INJ 750 MG in PREMIX 1 EACH IV SCH (09:36)
[2020-02-10] MEDS: TRACE ELEMENTS IV SCH (12:14)
[2020-02-10] MEDS: MULTIVITAMIN IV SCH (12:14)
[2020-02-10] MEDS: [UNRECOGNIZED DRUG - OTHER] IV SCH (12:14)
[2020-02-10] MEDS: INSULIN REGULAR IV SCH (12:14)
[2020-02-10] MEDS: FAT EMULSION 20% 250 ML IV SCH (15:34)
[2020-02-11] MEDS: INSULIN LISPRO 100 UNIT/ML SUBCUT SCH ×4 (00:44→18:14)
[2020-02-11] MEDS: PROMETHAZINE INJ 12.5 MG in SODIUM CHLORIDE 0.9% 50 ML IV PRN ×3 (00:53→17:16)
[2020-02-11 06:50] LABS: Basophils # 0.1 10*3/uL (0.0-0.2); Basophils % 0.6 % (0.0-0.8); Eosinophils # 0.2 10*3/uL (0.0-0.87); Eosinophils % 2.4 % (0.00-10.9); Hemoglobin 11.3 GM/DL (14.0-18.0); Immature Granulocytes % 14.5 %; Immature Granulocytes Absolute 1.46 #; Lymphocytes # 1.5 10*3/uL (1.4-4.0); Lymphocytes % 14.5 % (21.2-54.2); Mean Corpuscular HGB Conc 33.2 GM/DL (32-36); Mean Corpuscular Volume 92.4 FL (87-102); Mean Platelet Volume 12.8 FL (9.6-12.0); Monocytes % 10.1 % (1.7-12.7); NRBC # 0.07 10*3/uL; Neutrophils % 57.9 % (38.7-73.9); Platelet Count 214 T/CUMM (130-400); Red Blood Count 3.68 MC/CUMM (3.8-5.5); Red Cell Distribution Width 17.2 % (9.3-17.3); White Blood Count 10.1 T/CUMM (4-12)
[2020-02-11 07:14] LABS: Eosinophils 4 % (0-10); Hypochromasia Slight; Lymphocytes 13 % (20-55); Nucleated Red Blood Cells 1 (0-5); Platelet Estimate Normal; Segmented Neutrophils 75 % (50-85); Total Cells Counted 100
[2020-02-11 07:19] LABS: Calcium 7.1 MG/DL (8.5-10.1); Osmolality,Calculated 274.8 MOS/KG (273-304)
[2020-02-11] MEDS: PANTOPRAZOLE 40 MG VIAL IV SCH (08:58)
[2020-02-11] MEDS: ASPIRIN CHEW 81 MG TABLET PO SCH (08:58)
[2020-02-11] MEDS: CLOPIDOGREL 75 MG TABLET PO SCH (08:59)
[2020-02-11] MEDS: carvediloL 3.125 MG TABLET PO SCH ×2 (09:00→20:17)
[2020-02-11] MEDS: ATORVASTATIN 20 MG TABLET PO SCH (09:00)
[2020-02-11] MEDS: FLUTICASONE 50 MCG NASAL SPRAY 16 GM BOTTLE BOTH NARES SCH (09:01)
[2020-02-11] MEDS: OLOPATADINE 0.1% OPH SOLN 5 ML BOTTLE BOTH EYES SCH ×2 (09:01→20:18)
[2020-02-11] MEDS: DICLOFENAC 1% GEL 100 GM TUBE TOP SCH ×3 (09:02→20:15)
[2020-02-11] MEDS: LEVOFLOXACIN INJ 750 MG in PREMIX 1 EACH IV SCH (09:36)
[2020-02-11] MEDS: [UNRECOGNIZED DRUG - OTHER] IV SCH (12:25)
[2020-02-11] MEDS: INSULIN REGULAR IV SCH (12:25)
[2020-02-11] MEDS: TRACE ELEMENTS IV SCH (12:25)
[2020-02-11] MEDS: MULTIVITAMIN IV SCH (12:25)
[2020-02-11] MEDS: FAT EMULSION 20% 250 ML IV SCH (15:26)
[2020-02-12] MEDS: INSULIN LISPRO 100 UNIT/ML SUBCUT SCH ×3 (01:12→14:33)
[2020-02-12] MEDS ORDERED: ZALEPLON 5 MG CAPSULE PO PRN (02:06)
[2020-02-12 04:25] LABS: Basophils # 0.2 10*3/uL (0.0-0.2); Basophils % 2.1 % (0.0-0.8); Eosinophils # 0.2 10*3/uL (0.0-0.87); Eosinophils % 1.6 % (0.00-10.9); Hemoglobin 11.4 GM/DL (14.0-18.0); Immature Granulocytes % 11.6 %; Lymphocytes # 2.2 10*3/uL (1.4-4.0); Mean Corpuscular HGB Conc 32.6 GM/DL (32-36); Mean Corpuscular Volume 93.1 FL (87-102); Mean Platelet Volume 12.7 FL (9.6-12.0); Monocytes % 14.8 % (1.7-12.7); NRBC # 0.07 10*3/uL; Neutrophils % 48.9 % (38.7-73.9); Platelet Count 229 T/CUMM (130-400); Red Blood Count 3.76 MC/CUMM (3.8-5.5); Red Cell Distribution Width 17.6 % (9.3-17.3); White Blood Count 10.3 T/CUMM (4-12)
[2020-02-12 04:42] LABS: Calcium 7.6 MG/DL (8.5-10.1)
[2020-02-12 04:52] LABS: Band Neutrophils 2 % (0-10); Eosinophils 8 % (0-10); Hypochromasia Slight; Lymphocytes 22 % (20-55); Platelet Estimate Adequate; Segmented Neutrophils 53 % (50-85); Total Cells Counted 100
[2020-02-12 04:54] LABS: Microcytosis Slight; Ovalocytes Slight
[2020-02-12] MEDS: carvediloL 3.125 MG TABLET PO SCH (08:43)
[2020-02-12] MEDS: ASPIRIN CHEW 81 MG TABLET PO SCH (08:43)
[2020-02-12] MEDS: CLOPIDOGREL 75 MG TABLET PO SCH (08:43)
[2020-02-12] MEDS: ATORVASTATIN 20 MG TABLET PO SCH (08:43)
[2020-02-12] MEDS: DICLOFENAC 1% GEL 100 GM TUBE TOP SCH (08:44)
[2020-02-12] MEDS: PANTOPRAZOLE 40 MG VIAL IV SCH (08:44)
[2020-02-12] MEDS: OLOPATADINE 0.1% OPH SOLN 5 ML BOTTLE BOTH EYES SCH (08:44)
[2020-02-12] MEDS ORDERED: TAMSULOSIN 0.4 MG CAPSULE PO SCH (09:00)
[2020-02-12] MEDS ORDERED: NYSTATIN 500,000 UNIT/5 ML UDCUP SWISH/SWAL SCH (13:00)
[2020-02-12] MEDS: ONDANSETRON 4 MG/2 ML VIAL IV PRN (13:37)
[2020-02-12] MEDS ORDERED: LEVOFLOXACIN 750 MG TABLET PO SCH (14:00)
[2020-02-12 15:54] VITALS: BP 128/78
== END 2020-02-12 17:29 | disposition home health service (06) | DRG 329 ==
LOC: N.OR 06:19 → N.3E 06:19 → N.SDSINP 06:19 → N.3E 13:57 → N.SDSINP 13:57 → N.ICU 02-02 11:43 → N.4E 02-07 13:41
PROVIDERS: ADMIT Surgery; ATTEND Surgery

== ENCOUNTER 2020-03-01 18:47 | Observation (INO) ==
[2020-03-01] MEDS ORDERED: SODIUM CHLORIDE 0.9% 500 ML IV STA ×2 (21:27→23:44)
[2020-03-01] MEDS ORDERED: PANTOPRAZOLE 40 MG VIAL IV STA (21:27)
[2020-03-01] MEDS ORDERED: ONDANSETRON 4 MG/2 ML VIAL IV STA (21:27)
[2020-03-01] MEDS ORDERED: HYDROmorphone 2 MG/1 ML VIAL IV STA (21:27)
[2020-03-01 22:01] LABS: Basophils # 0.1 10*3/uL (0.0-0.2); Eosinophils # 0.5 10*3/uL (0.0-0.87); Eosinophils % 5.2 % (0.00-10.9); Hematocrit 40.8 VOL% (42.0-52.0); Hemoglobin 13.1 GM/DL (14.0-18.0); Immature Granulocytes % 0.5 %; Immature Granulocytes Absolute 0.05 #; Lymphocytes % 41.1 % (21.2-54.2); Mean Corpuscular HGB Conc 32.1 GM/DL (32-36); Mean Corpuscular Volume 90.9 FL (87-102); Mean Platelet Volume 11.2 FL (9.6-12.0); Monocytes % 7.9 % (1.7-12.7); Neutrophils % 44.3 % (38.7-73.9); Platelet Count 284 T/CUMM (130-400); Red Blood Count 4.49 MC/CUMM (3.8-5.5); Red Cell Distribution Width 15.8 % (9.3-17.3); White Blood Count 9.8 T/CUMM (4-12)
[2020-03-01 22:26] LABS: Alanine Aminotransferase 24 U/L (16-61); Albumin 3.4 G/DL (3.4-5.0); Alkaline Phosphatase 110 U/L (45-117); Amylase 92 U/L (25-115); Aspartate Amino Transferase 24 U/L (0-37); Blood Urea Nitrogen 11 MG/DL (7-18); Calcium 9.1 MG/DL (8.5-10.1); Estimated Glom Filtration Rate 69 ML/MIN; Glucose 116 MG/DL (74-106); Osmolality,Calculated 276.5 MOS/KG (273-304); Total Protein 7.9 G/DL (6.4-8.3); Troponin I < 0.015 NG/ML (0.00-0.045)
[2020-03-01] MEDS ORDERED: PROMETHAZINE 25 MG/1 ML VIAL ONE (22:29)
[2020-03-01] MEDS ORDERED: PROMETHAZINE 25 MG/1 ML VIAL IM STA (22:31)
[2020-03-02 00:13] LABS: Bilirubin,Urine Negative (Negative); Blood, Urine Negative (Negative); Glucose,Urine (UA) Negative (Negative); Ketones,Urine Negative (Negative); Nitrite,Urine Negative (Negative); Protein,Urine Negative; RBC,Urine 3 /HPF (0-4); Squamous Epithelial Cell,Urine Occasional /HPF (0-10); Urine Appearance CLEAR (Clear); Urine Color Straw (Yellow); Urine Specific Gravity 1.048 (1.001-1.035); Urine Urobilinogen < 2.0 EU/DL (0.2-1.0); WBC,Urine <1 /HPF (0-6)
[2020-03-02] MEDS ORDERED: SIMETHICONE CHEW 80 MG TABLET PO STA (01:29)
[2020-03-02] MEDS ORDERED: KETOROLAC 30 MG/1 ML VIAL IV STA (01:29)
[2020-03-02] MEDS ORDERED: PROMETHAZINE 25 MG/1 ML VIAL IM PRN (01:58)
[2020-03-02] MEDS ORDERED: GLUCAGON 1 MG VIAL IM PRN (01:58)
[2020-03-02] MEDS ORDERED: NICOTINE 21 MG/24 HR PATCH TRANSDERM PRN (01:58)
[2020-03-02] MEDS ORDERED: hydrALAZINE 20 MG/1 ML VIAL IV PRN (01:58)
[2020-03-02] MEDS ORDERED: DEXTROSE 50% 25 GM/50 ML VIAL IV PRN (01:58)
[2020-03-02] MEDS ORDERED: diphenhydrAMINE CAP 25 MG CAPSULE PO PRN (01:58)
[2020-03-02] MEDS: SODIUM CHLORIDE 0.9% 1,000 ML IV SCH (03:55)
[2020-03-02] MEDS: ONDANSETRON 4 MG/2 ML VIAL IV PRN (07:06)
[2020-03-02 08:33] LABS: Basophils # 0.1 10*3/uL (0.0-0.2); Basophils % 0.8 % (0.0-0.8); Eosinophils # 0.3 10*3/uL (0.0-0.87); Hematocrit 38.5 VOL% (42.0-52.0); Hemoglobin 12.4 GM/DL (14.0-18.0); Immature Granulocytes % 0.5 %; Immature Granulocytes Absolute 0.04 #; Lymphocytes # 3.1 10*3/uL (1.4-4.0); Lymphocytes % 36.4 % (21.2-54.2); Mean Corpuscular HGB Conc 32.2 GM/DL (32-36); Mean Corpuscular Volume 90.2 FL (87-102); Mean Platelet Volume 11.2 FL (9.6-12.0); Monocytes % 9.4 % (1.7-12.7); Neutrophils % 48.9 % (38.7-73.9); Platelet Count 224 T/CUMM (130-400); Red Blood Count 4.27 MC/CUMM (3.8-5.5); Red Cell Distribution Width 15.9 % (9.3-17.3); White Blood Count 8.5 T/CUMM (4-12)
[2020-03-02 08:55] LABS: Albumin 3.1 G/DL (3.4-5.0); Bilirubin,Total 0.6 MG/DL (0.2-1.0); Calcium 8.5 MG/DL (8.5-10.1); Osmolality,Calculated 272.7 MOS/KG (273-304); Total Protein 6.9 G/DL (6.4-8.3)
[2020-03-02] MEDS ORDERED: IPRATROPIUM 0.06% NASAL SPRAY 15 ML BOTTLE BOTH NARES PRN (15:55)
[2020-03-02] MEDS ORDERED: NITROGLYCERIN SL 0.4 MG TABLET SL PRN (15:55)
[2020-03-02] MEDS: carvediloL 3.125 MG TABLET PO SCH (20:31)
[2020-03-02] MEDS ORDERED: MELATONIN 3 MG TABLET PO PRN (20:55)
[2020-03-02] MEDS ORDERED: OLOPATADINE 0.1% OPH SOLN 5 ML BOTTLE BOTH EYES SCH (21:00)
[2020-03-02] MEDS ORDERED: ATORVASTATIN 20 MG TABLET PO SCH (21:00)
[2020-03-02] MEDS ORDERED: DICLOFENAC 1% GEL 100 GM TUBE TOP SCH (21:00)
[2020-03-03] MEDS: SODIUM CHLORIDE 0.9% 1,000 ML IV SCH (00:45)
[2020-03-03] MEDS: ONDANSETRON 4 MG/2 ML VIAL IV PRN (02:56)
[2020-03-03 06:09] LABS: Basophils # 0.1 10*3/uL (0.0-0.2); Basophils % 1.1 % (0.0-0.8); Eosinophils # 0.3 10*3/uL (0.0-0.87); Eosinophils % 3.8 % (0.00-10.9); Hematocrit 37.5 VOL% (42.0-52.0); Hemoglobin 12.2 GM/DL (14.0-18.0); Immature Granulocytes % 0.4 %; Immature Granulocytes Absolute 0.03 #; Lymphocytes # 2.7 10*3/uL (1.4-4.0); Lymphocytes % 31.2 % (21.2-54.2); Mean Corpuscular HGB Conc 32.5 GM/DL (32-36); Mean Corpuscular Volume 90.4 FL (87-102); Monocytes % 9.1 % (1.7-12.7); Neutrophils % 54.4 % (38.7-73.9); Platelet Count 215 T/CUMM (130-400); Red Blood Count 4.15 MC/CUMM (3.8-5.5); Red Cell Distribution Width 15.9 % (9.3-17.3); White Blood Count 8.5 T/CUMM (4-12)
[2020-03-03 06:30] LABS: Calcium 8.3 MG/DL (8.5-10.1); Osmolality,Calculated 276.4 MOS/KG (273-304)
[2020-03-03] MEDS: carvediloL 3.125 MG TABLET PO SCH (08:11)
[2020-03-03] MEDS ORDERED: TAMSULOSIN 0.4 MG CAPSULE PO SCH (09:00)
[2020-03-03] MEDS ORDERED: ASCORBIC ACID 500 MG TABLET PO SCH (09:00)
[2020-03-03] MEDS ORDERED: FLUTICASONE 50 MCG NASAL SPRAY 16 GM BOTTLE BOTH NARES SCH (09:00)
[2020-03-03] MEDS ORDERED: CALCIUM (CARBONATE) 600 MG TABLET PO SCH (09:00)
[2020-03-03] MEDS ORDERED: CYANOCOBALAMIN 500 MCG TABLET PO SCH (09:00)
[2020-03-03] MEDS ORDERED: INSULIN GLARGINE U SUBCUT SCH (09:00)
[2020-03-03] MEDS ORDERED: PANTOPRAZOLE 40 MG TABLET PO SCH (09:00)
[2020-03-03] MEDS ORDERED: CLOPIDOGREL 75 MG TABLET PO SCH (09:00)
[2020-03-03] MEDS ORDERED: ASPIRIN EC 81 MG TABLET PO SCH (09:00)
[2020-03-03] MEDS ORDERED: DEXTROSE 50% 25 GM/50 ML VIAL IV PRN (10:59)
[2020-03-03] MEDS ORDERED: GLUCAGON 1 MG VIAL IM PRN (10:59)
[2020-03-03 12:17] VITALS: BP 118/71
== END 2020-03-03 12:53 | disposition home or self-care (01) ==
LOC: N.ED 18:47 → N.EDINP 18:47 → N.4E 03-02 04:08
PROVIDERS: ADMIT Internal Medicine; ATTEND Internal Medicine

== ENCOUNTER 2020-09-03 05:42 | Inpatient (IN) ==
[2020-09-03] MEDS ORDERED: cefOXitin 1,000 MG in SODIUM CHLORIDE 0.9% 100 ML IV ONE (06:00)
[2020-09-03] MEDS ORDERED: LACTATED RINGERS 1,000 ML IV SCH (06:00)
[2020-09-03] MEDS ORDERED: SCOPOLAMINE 1.5 MG PATCH TRANSDERM STA (06:42)
[2020-09-03] MEDS ORDERED: BUPIVACAINE MPF 0.25% 30 ML VIAL ONE (06:47)
[2020-09-03] MEDS ORDERED: fentaNYL 100 MCG/2 ML VIAL ONE (06:53)
[2020-09-03] MEDS ORDERED: LIDOCAINE 2% 5 ML VIAL ONE (07:51)
[2020-09-03] MEDS ORDERED: ROCURONIUM 50 MG/5 ML VIAL IV ONE ×2 (07:51→09:27)
[2020-09-03] MEDS ORDERED: DEXAMETHASONE 4 MG/1 ML VIAL ONE (07:51)
[2020-09-03] MEDS ORDERED: ONDANSETRON 4 MG/2 ML VIAL ONE (07:51)
[2020-09-03] MEDS ORDERED: propofoL 200 MG/20 ML VIAL IV ONE (07:51)
[2020-09-03] MEDS ORDERED: PHENYLEPHRINE 1 MG/10 ML SYRINGE IV ONE (07:58)
[2020-09-03] MEDS ORDERED: HYDROmorphone 2 MG/1 ML VIAL ONE (09:00)
[2020-09-03] MEDS ORDERED: GLYCOPYRROLATE 0.4 MG/2 ML VIAL ONE (09:23)
[2020-09-03] MEDS ORDERED: NEOSTIGMINE 10 MG/10 ML VIAL ONE (09:23)
[2020-09-03] MEDS ORDERED: ePHEDrine 50 MG/ML VIAL ONE (09:40)
[2020-09-03] MEDS ORDERED: KETOROLAC 15 MG/1 ML VIAL IV PRN (10:05)
[2020-09-03] MEDS ORDERED: ALBUTEROL/IPRATROPIUM 3 ML NEB RESP TX PRN (10:05)
[2020-09-03] MEDS ORDERED: ACETAMINOPHEN 325 MG TABLET PO PRN (10:05)
[2020-09-03] MEDS ORDERED: TAMSULOSIN 0.4 MG CAPSULE PO PRN (10:10)
[2020-09-03] MEDS ORDERED: NITROGLYCERIN SL 0.4 MG TABLET SL PRN (10:10)
[2020-09-03] MEDS ORDERED: DEXTROSE 50% 25 GM/50 ML VIAL IV PRN (10:11)
[2020-09-03] MEDS ORDERED: GLUCAGON 1 MG VIAL IM PRN (10:11)
[2020-09-03] MEDS ORDERED: SEVOFLURANE 1 UNIT/15 MINUTE INH ONE (10:32)
[2020-09-03] MEDS ORDERED: HYDROmorphone 2 MG/1 ML VIAL IV PRN (11:04)
[2020-09-03] MEDS ORDERED: ONDANSETRON 4 MG/2 ML VIAL IV PRN (11:04)
[2020-09-03] MEDS: HYDROmorphone 2 MG/1 ML VIAL IV PRN (11:05)
[2020-09-03] MEDS: ONDANSETRON 4 MG/2 ML VIAL IV PRN ×2 (11:06→18:48)
[2020-09-03] MEDS: INSULIN LISPRO 100 UNIT/ML SUBCUT SCH ×3 (14:24→22:06)
[2020-09-03] MEDS: LACTATED RINGERS 1,000 ML IV SCH ×2 (14:45→18:36)
[2020-09-03] MEDS: DICLOFENAC 1% GEL 100 GM TUBE TOP SCH ×2 (18:39→22:07)
[2020-09-03] MEDS: carvediloL 6.25 MG TABLET PO SCH (22:05)
[2020-09-03] MEDS: LOSARTAN 50 MG TABLET PO SCH (22:05)
[2020-09-03] MEDS: OLOPATADINE 0.1% OPH SOLN 5 ML BOTTLE BOTH EYES SCH (22:12)
[2020-09-04] MEDS: LACTATED RINGERS 1,000 ML IV SCH ×3 (03:08→23:21)
[2020-09-04] MEDS: ENOXAPARIN 40 MG/0.4 ML SYRINGE SUBCUT SCH (04:47)
[2020-09-04 05:18] LABS: Basophils % 0.2 % (0.0-0.8); Hematocrit 43.3 VOL% (42.0-52.0); Hemoglobin 14.1 GM/DL (14.0-18.0); Immature Granulocytes % 0.6 %; Immature Granulocytes Absolute 0.08 #; Lymphocytes # 2.3 10*3/uL (1.4-4.0); Mean Corpuscular HGB Conc 32.6 GM/DL (32-36); Mean Corpuscular Volume 87.7 FL (87-102); Mean Platelet Volume 11.4 FL (9.6-12.0); Monocytes % 9.4 % (1.7-12.7); Neutrophils % 71.8 % (38.7-73.9); Platelet Count 236 T/CUMM (130-400); Red Blood Count 4.94 MC/CUMM (3.8-5.5); Red Cell Distribution Width 17.1 % (9.3-17.3); White Blood Count 12.9 T/CUMM (4-12)
[2020-09-04 05:44] LABS: Calcium 8.8 MG/DL (8.5-10.1); Potassium 5.1 MMOL/L (3.5-5.1)
[2020-09-04] MEDS: INSULIN LISPRO 100 UNIT/ML SUBCUT SCH ×4 (08:10→21:47)
[2020-09-04] MEDS: ASPIRIN EC 81 MG TABLET PO SCH (09:39)
[2020-09-04] MEDS: carvediloL 6.25 MG TABLET PO SCH ×2 (09:40→20:29)
[2020-09-04] MEDS: LOSARTAN 50 MG TABLET PO SCH ×2 (09:40→20:29)
[2020-09-04] MEDS: OLOPATADINE 0.1% OPH SOLN 5 ML BOTTLE BOTH EYES SCH ×2 (09:42→20:37)
[2020-09-04] MEDS: DICLOFENAC 1% GEL 100 GM TUBE TOP SCH ×3 (09:43→21:47)
[2020-09-04] MEDS: PANTOPRAZOLE 40 MG VIAL IV SCH (09:46)
[2020-09-04] MEDS: FLUTICASONE 50 MCG NASAL SPRAY 16 GM BOTTLE BOTH NARES SCH (09:49)
[2020-09-04] MEDS: IPRATROPIUM 0.06% NASAL SPRAY 15 ML BOTTLE BOTH NARES PRN ×2 (09:49→20:36)
[2020-09-04] MEDS: HYDROmorphone 2 MG/1 ML VIAL IV PRN ×3 (14:59→23:22)
[2020-09-04] MEDS: ONDANSETRON 4 MG/2 ML VIAL IV PRN (20:31)
[2020-09-04] MEDS: diphenhydrAMINE CAP 25 MG CAPSULE PO PRN (23:22)
[2020-09-05 04:32] LABS: Basophils % 0.3 % (0.0-0.8); Eosinophils # 0.1 10*3/uL (0.0-0.87); Eosinophils % 0.5 % (0.00-10.9); Hematocrit 42.5 VOL% (42.0-52.0); Hemoglobin 13.3 GM/DL (14.0-18.0); Immature Granulocytes % 0.7 %; Immature Granulocytes Absolute 0.07 #; Lymphocytes # 2.6 10*3/uL (1.4-4.0); Lymphocytes % 25.9 % (21.2-54.2); Mean Corpuscular HGB Conc 31.3 GM/DL (32-36); Mean Corpuscular Volume 90.8 FL (87-102); Mean Platelet Volume 11.3 FL (9.6-12.0); Monocytes % 13.4 % (1.7-12.7); Neutrophils % 59.2 % (38.7-73.9); Platelet Count 222 T/CUMM (130-400); Red Blood Count 4.68 MC/CUMM (3.8-5.5); Red Cell Distribution Width 17.3 % (9.3-17.3); White Blood Count 10.2 T/CUMM (4-12)
[2020-09-05 04:46] LABS: Calcium 8.8 MG/DL (8.5-10.1); Osmolality,Calculated 274.8 MOS/KG (273-304); Potassium 4.6 MMOL/L (3.5-5.1)
[2020-09-05] MEDS: ENOXAPARIN 40 MG/0.4 ML SYRINGE SUBCUT SCH (05:14)
[2020-09-05] MEDS: carvediloL 6.25 MG TABLET PO SCH ×2 (08:53→21:09)
[2020-09-05] MEDS: PANTOPRAZOLE 40 MG VIAL IV SCH (08:53)
[2020-09-05] MEDS: ASPIRIN EC 81 MG TABLET PO SCH (08:53)
[2020-09-05] MEDS: LOSARTAN 50 MG TABLET PO SCH ×2 (08:53→21:09)
[2020-09-05] MEDS: INSULIN LISPRO 100 UNIT/ML SUBCUT SCH ×4 (08:53→21:14)
[2020-09-05] MEDS: LACTATED RINGERS 1,000 ML IV SCH ×2 (08:54→16:59)
[2020-09-05] MEDS: DICLOFENAC 1% GEL 100 GM TUBE TOP SCH ×3 (09:01→21:14)
[2020-09-05] MEDS: OLOPATADINE 0.1% OPH SOLN 5 ML BOTTLE BOTH EYES SCH ×2 (09:01→21:10)
[2020-09-05] MEDS: FLUTICASONE 50 MCG NASAL SPRAY 16 GM BOTTLE BOTH NARES SCH (09:01)
[2020-09-05] MEDS ORDERED: valACYclovir 500 MG TABLET PO PRN (10:21)
[2020-09-05] MEDS: ONDANSETRON 4 MG/2 ML VIAL IV PRN ×3 (11:47→21:10)
[2020-09-05] MEDS: HYDROmorphone 2 MG/1 ML VIAL IV PRN ×2 (12:21→21:11)
[2020-09-05] MEDS ORDERED: PROMETHAZINE 25 MG/1 ML VIAL IM PRN (14:23)
[2020-09-05] MEDS: METOCLOPRAMIDE 10 MG/2 ML VIAL IV SCH (17:53)
[2020-09-06] MEDS: METOCLOPRAMIDE 10 MG/2 ML VIAL IV SCH ×4 (00:26→17:13)
[2020-09-06] MEDS: LACTATED RINGERS 1,000 ML IV SCH ×5 (00:30→17:48)
[2020-09-06] MEDS: ENOXAPARIN 40 MG/0.4 ML SYRINGE SUBCUT SCH (04:42)
[2020-09-06 04:52] LABS: Basophils % 0.3 % (0.0-0.8); Eosinophils # 0.2 10*3/uL (0.0-0.87); Eosinophils % 1.5 % (0.00-10.9); Hematocrit 45.6 VOL% (42.0-52.0); Hemoglobin 14.3 GM/DL (14.0-18.0); Immature Granulocytes Absolute 0.11 #; Lymphocytes # 2.3 10*3/uL (1.4-4.0); Lymphocytes % 20.1 % (21.2-54.2); Mean Corpuscular HGB Conc 31.4 GM/DL (32-36); Mean Corpuscular Volume 89.1 FL (87-102); Mean Platelet Volume 10.7 FL (9.6-12.0); Monocytes % 12.1 % (1.7-12.7); Platelet Count 238 T/CUMM (130-400); Red Blood Count 5.12 MC/CUMM (3.8-5.5); Red Cell Distribution Width 17.1 % (9.3-17.3); White Blood Count 11.5 T/CUMM (4-12)
[2020-09-06 05:53] LABS: Calcium 8.9 MG/DL (8.5-10.1); Osmolality,Calculated 274.8 MOS/KG (273-304); Potassium 3.9 MMOL/L (3.5-5.1)
[2020-09-06] MEDS: INSULIN LISPRO 100 UNIT/ML SUBCUT SCH ×4 (08:19→22:14)
[2020-09-06] MEDS ORDERED: KETOROLAC 30 MG/1 ML VIAL IV ONE (08:51)
[2020-09-06] MEDS: ONDANSETRON 4 MG/2 ML VIAL IV PRN ×2 (09:16→21:16)
[2020-09-06] MEDS: ASPIRIN EC 81 MG TABLET PO SCH (09:17)
[2020-09-06] MEDS: CLOPIDOGREL 75 MG TABLET PO SCH (09:17)
[2020-09-06] MEDS: carvediloL 6.25 MG TABLET PO SCH ×2 (09:17→21:15)
[2020-09-06] MEDS: PANTOPRAZOLE 40 MG VIAL IV SCH (09:17)
[2020-09-06] MEDS: DICLOFENAC 1% GEL 100 GM TUBE TOP SCH ×3 (09:17→22:15)
[2020-09-06] MEDS: LOSARTAN 50 MG TABLET PO SCH ×2 (09:17→21:15)
[2020-09-06] MEDS: FLUTICASONE 50 MCG NASAL SPRAY 16 GM BOTTLE BOTH NARES SCH (09:17)
[2020-09-06] MEDS: OLOPATADINE 0.1% OPH SOLN 5 ML BOTTLE BOTH EYES SCH ×2 (09:17→22:15)
[2020-09-06] MEDS: KETOROLAC 15 MG/1 ML VIAL IV SCH ×2 (14:09→21:15)
[2020-09-06] MEDS: PHENOL 1.4% THROAT SPRAY 177 ML BOTTLE PO PRN (15:33)
[2020-09-07] MEDS: METOCLOPRAMIDE 10 MG/2 ML VIAL IV SCH ×4 (00:42→17:07)
[2020-09-07] MEDS: LACTATED RINGERS 1,000 ML IV SCH ×4 (00:45→19:33)
[2020-09-07] MEDS: KETOROLAC 15 MG/1 ML VIAL IV SCH ×4 (03:26→20:57)
[2020-09-07 05:11] LABS: Osmolality,Calculated 281.3 MOS/KG (273-304); Potassium 3.8 MMOL/L (3.5-5.1)
[2020-09-07 05:14] LABS: Basophils % 0.4 % (0.0-0.8); Eosinophils # 0.3 10*3/uL (0.0-0.87); Eosinophils % 3.2 % (0.00-10.9); Hematocrit 38.1 VOL% (42.0-52.0); Immature Granulocytes % 0.4 %; Immature Granulocytes Absolute 0.03 #; Lymphocytes # 1.8 10*3/uL (1.4-4.0); Lymphocytes % 23.2 % (21.2-54.2); Mean Corpuscular HGB Conc 32.3 GM/DL (32-36); Mean Corpuscular Volume 88.4 FL (87-102); Mean Platelet Volume 11.6 FL (9.6-12.0); Monocytes % 9.6 % (1.7-12.7); Neutrophils % 63.2 % (38.7-73.9); Red Blood Count 4.31 MC/CUMM (3.8-5.5); Red Cell Distribution Width 16.8 % (9.3-17.3)
[2020-09-07 05:20] LABS: Hemoglobin 12.3 GM/DL (14.0-18.0); Platelet Count 183 T/CUMM (130-400); White Blood Count 7.8 T/CUMM (4-12)
[2020-09-07] MEDS: ENOXAPARIN 40 MG/0.4 ML SYRINGE SUBCUT SCH (05:36)
[2020-09-07] MEDS: INSULIN LISPRO 100 UNIT/ML SUBCUT SCH ×4 (07:41→20:58)
[2020-09-07] MEDS: PANTOPRAZOLE 40 MG VIAL IV SCH (09:03)
[2020-09-07] MEDS: CLOPIDOGREL 75 MG TABLET PO SCH (09:03)
[2020-09-07] MEDS: ASPIRIN EC 81 MG TABLET PO SCH (09:03)
[2020-09-07] MEDS: carvediloL 6.25 MG TABLET PO SCH ×2 (09:04→20:54)
[2020-09-07] MEDS: IPRATROPIUM 0.06% NASAL SPRAY 15 ML BOTTLE BOTH NARES PRN (09:05)
[2020-09-07] MEDS: OLOPATADINE 0.1% OPH SOLN 5 ML BOTTLE BOTH EYES SCH ×2 (09:05→20:57)
[2020-09-07] MEDS: FLUTICASONE 50 MCG NASAL SPRAY 16 GM BOTTLE BOTH NARES SCH (09:07)
[2020-09-07] MEDS: DICLOFENAC 1% GEL 100 GM TUBE TOP SCH ×3 (09:07→20:57)
[2020-09-07] MEDS: LOSARTAN 50 MG TABLET PO SCH ×2 (09:10→20:54)
[2020-09-08] MEDS: METOCLOPRAMIDE 10 MG/2 ML VIAL IV SCH ×5 (00:04→23:49)
[2020-09-08] MEDS: LACTATED RINGERS 1,000 ML IV SCH ×4 (02:06→21:21)
[2020-09-08] MEDS: ENOXAPARIN 40 MG/0.4 ML SYRINGE SUBCUT SCH (03:34)
[2020-09-08] MEDS: KETOROLAC 15 MG/1 ML VIAL IV SCH ×4 (03:36→21:16)
[2020-09-08] MEDS: INSULIN LISPRO 100 UNIT/ML SUBCUT SCH ×4 (08:51→21:16)
[2020-09-08] MEDS: IPRATROPIUM 0.06% NASAL SPRAY 15 ML BOTTLE BOTH NARES PRN (08:53)
[2020-09-08] MEDS: PANTOPRAZOLE 40 MG VIAL IV SCH (08:54)
[2020-09-08] MEDS: OLOPATADINE 0.1% OPH SOLN 5 ML BOTTLE BOTH EYES SCH ×2 (08:54→21:16)
[2020-09-08] MEDS: PHENOL 1.4% THROAT SPRAY 177 ML BOTTLE PO PRN (08:54)
[2020-09-08] MEDS: ASPIRIN EC 81 MG TABLET PO SCH (08:55)
[2020-09-08] MEDS: LOSARTAN 50 MG TABLET PO SCH ×2 (08:55→21:16)
[2020-09-08] MEDS: FLUTICASONE 50 MCG NASAL SPRAY 16 GM BOTTLE BOTH NARES SCH (08:56)
[2020-09-08] MEDS: carvediloL 6.25 MG TABLET PO SCH ×2 (08:56→21:16)
[2020-09-08] MEDS: CLOPIDOGREL 75 MG TABLET PO SCH (08:56)
[2020-09-08] MEDS: DICLOFENAC 1% GEL 100 GM TUBE TOP SCH ×3 (08:57→21:17)
[2020-09-09] MEDS: KETOROLAC 15 MG/1 ML VIAL IV SCH ×4 (02:10→20:44)
[2020-09-09] MEDS: ENOXAPARIN 40 MG/0.4 ML SYRINGE SUBCUT SCH (05:24)
[2020-09-09] MEDS: METOCLOPRAMIDE 10 MG/2 ML VIAL IV SCH ×4 (05:25→23:05)
[2020-09-09] MEDS: ASPIRIN EC 81 MG TABLET PO SCH (08:44)
[2020-09-09] MEDS: carvediloL 6.25 MG TABLET PO SCH ×2 (08:44→20:44)
[2020-09-09] MEDS: INSULIN LISPRO 100 UNIT/ML SUBCUT SCH ×4 (08:44→20:44)
[2020-09-09] MEDS: CLOPIDOGREL 75 MG TABLET PO SCH (08:44)
[2020-09-09] MEDS: IPRATROPIUM 0.06% NASAL SPRAY 15 ML BOTTLE BOTH NARES PRN (08:46)
[2020-09-09] MEDS: OLOPATADINE 0.1% OPH SOLN 5 ML BOTTLE BOTH EYES SCH ×2 (08:46→20:43)
[2020-09-09] MEDS: PANTOPRAZOLE 40 MG VIAL IV SCH (08:47)
[2020-09-09] MEDS: DICLOFENAC 1% GEL 100 GM TUBE TOP SCH ×3 (08:52→20:44)
[2020-09-09] MEDS: LOSARTAN 50 MG TABLET PO SCH ×2 (08:52→20:44)
[2020-09-09] MEDS: FLUTICASONE 50 MCG NASAL SPRAY 16 GM BOTTLE BOTH NARES SCH (08:52)
[2020-09-09] MEDS: LACTATED RINGERS 1,000 ML IV SCH (14:23)
[2020-09-09] MEDS: diphenhydrAMINE CAP 25 MG CAPSULE PO PRN (23:32)
[2020-09-10] MEDS: KETOROLAC 15 MG/1 ML VIAL IV SCH ×2 (02:11→08:50)
[2020-09-10] MEDS: ENOXAPARIN 40 MG/0.4 ML SYRINGE SUBCUT SCH (04:40)
[2020-09-10] MEDS: METOCLOPRAMIDE 10 MG/2 ML VIAL IV SCH ×2 (05:03→12:42)
[2020-09-10] MEDS: INSULIN LISPRO 100 UNIT/ML SUBCUT SCH ×2 (07:47→12:41)
[2020-09-10] MEDS: LOSARTAN 50 MG TABLET PO SCH (08:46)
[2020-09-10] MEDS: ASPIRIN EC 81 MG TABLET PO SCH (08:47)
[2020-09-10] MEDS: CLOPIDOGREL 75 MG TABLET PO SCH (08:47)
[2020-09-10] MEDS: carvediloL 6.25 MG TABLET PO SCH (08:47)
[2020-09-10] MEDS: IPRATROPIUM 0.06% NASAL SPRAY 15 ML BOTTLE BOTH NARES PRN (08:49)
[2020-09-10] MEDS: OLOPATADINE 0.1% OPH SOLN 5 ML BOTTLE BOTH EYES SCH (08:49)
[2020-09-10] MEDS: FLUTICASONE 50 MCG NASAL SPRAY 16 GM BOTTLE BOTH NARES SCH (08:50)
[2020-09-10] MEDS: PANTOPRAZOLE 40 MG VIAL IV SCH (08:50)
[2020-09-10] MEDS: DICLOFENAC 1% GEL 100 GM TUBE TOP SCH (08:50)
[2020-09-10 11:25] VITALS: BP 146/76
== END 2020-09-10 14:55 | disposition home health service (06) | DRG 330 ==
LOC: N.OR 05:42 → N.SDSINP 05:45 → N.OR 09:35 → N.SDSINP 10:05 → N.4E 12:48
PROVIDERS: ADMIT Surgery; ATTEND Surgery